=== PATIENT | male | born 1940 | race Caucasian/White ===

== ENCOUNTER 2021-02-01 06:49 | Emergency (ER) | payer MEDICARE ==
[~2021-02-01] VITALS: Ht 175.3 cm; Wt 101.3 kg
--- NOTE | 2021-02-01 07:16 | ED.ADGEN ---
General Adult EDM: Chief Complaint: ALTERED MENTAL STATUS HPI: HPI: Patient is a 80 year old male presenting via EMS for altered mental status. Per the report his said that he woke up 4 hours prior to arrival and was speaking nonsensically. Last known normal about 8 hours prior to arrival. Patient requested to go to [facility] via EMS brought him to this facility due to concerns for irregular heart rate. They stated that his heart rate will fluctuate between 70 to his lowest 26 bpm. Patient has a history of a pacemaker as well as an ablation 1 to 2 months ago. Per the report said that he has a history of UTIs and is recently been being treated for a dental infection. Stroke scale negative on their assessment and he is afebrile. History limited to EMS report due to patient's mental status. Patient is normally GCS 15 alert oriented x4, lives at home with . Review of Systems: Review of Systems: All other systems within normal limits except for as noted in the HPI Current Medications: Current Medications Medications (Trade) Dose Ordered Sig/Amado Start Time Stop Time Status Last Admin Dose Admin Sodium Chloride 500 ml @ 500 mls/hr 1X ONCE 02/01/21 10:00 02/01/21 10:59 DC 02/01/21 10:15 500 MLS/HR Allergies: Allergies: Allergies Coded Allergies Type Severity Reaction Last Updated Verified Unable to Assess 02/01/21 No Physical Exam: PE: Constitutional: Well developed, well nourished, no acute distress, non-toxic appearance. [] HENT: Normocephalic, atraumatic, bilateral external ears normal, nose normal. [] Eyes: PERRLA, conjunctiva normal, no discharge. [] Neck: No rigidity, supple, no stridor. [] Cardiovascular: Regular rate and rhythm, brisk cap refill [] Lungs & Thorax: Non labored symmetric respirations, no tachypnea or respiratory distress [] Abdomen: Soft, nondistended, no guarding palpation Skin: Warm, dry, no erythema, no rash. [] Back: Unremarkable Extremities: No deformities, range of motion grossly intact, no lower extremity edema [] Neurologic: Alert but disoriented, no focal deficits noted, moving all extremities, symmetric facial expressions Psychologic: Affect normal, judgement normal, mood normal. [] Current Patient Data: Labs: Laboratory Tests Test 02/01/21 07:05 02/01/21 07:18 02/01/21 07:38 White Blood Count 4.6 x10^3/uL (4.0-11.0) Red Blood Count 3.67 x10^6/uL (4.30-5.70) L Hemoglobin 11.3 g/dL (13.0-17.5) L Hematocrit 33.5 % (39.0-53.0) L Mean Corpuscular Volume 91 fL (79-100) Mean Corpuscular Hemoglobin 31 pg (25-35) Mean Corpuscular Hemoglobin Concent 34 g/dL (31-37) Red Cell Distribution Width 13.5 % (11.5-14.5) Platelet Count 193 x10^3/uL (140-400) Neutrophils (%) (Auto) 62 % (31-73) Lymphocytes (%) (Auto) 19 % (24-48) L Monocytes (%) (Auto) 10 % (0-9) H Eosinophils (%) (Auto) 8 % (0-3) H Basophils (%) (Auto) 1 % (0-3) Neutrophils # (Auto) 2.9 x10^3/uL (1.8-7.7) Lymphocytes # (Auto) 0.9 x10^3/uL (1.0-4.8) L Monocytes # (Auto) 0.5 x10^3/uL (0.0-1.1) Eosinophils # (Auto) 0.4 x10^3/uL (0.0-0.7) Basophils # (Auto) 0.1 x10^3/uL (0.0-0.2) Sodium Level 142 mmol/L (136-145) Potassium Level 4.5 mmol/L (3.5-5.1) Chloride Level 107 mmol/L (98-107) Carbon Dioxide Level 30 mmol/L (21-32) Anion Gap 5 (6-14) L Blood Urea Nitrogen 17 mg/dL (8-26) Creatinine 1.5 mg/dL (0.7-1.3) H Estimated GFR (Cockcroft-Gault) 45.0 BUN/Creatinine Ratio 11 (6-20) Glucose Level 181 mg/dL (70-99) H Lactic Acid Level 1.8 mmol/L (0.4-2.0) Calcium Level 8.4 mg/dL (8.5-10.1) L Phosphorus Level 2.5 mg/dL (2.6-4.7) L Magnesium Level 1.7 mg/dL (1.8-2.4) L Total Bilirubin 0.2 mg/dL (0.2-1.0) Aspartate Amino Transferase (AST) 19 U/L (15-37) Alanine Aminotransferase (ALT) 24 U/L (16-63) Alkaline Phosphatase 83 U/L (46-116) Ammonia 24 mcmol/L (11-34) Troponin I Quantitative < 0.017 ng/mL (0.000-0.055) PD-Hmf-B-Type Natriuretic Peptide 247 pg/mL (0-449) Total Protein 5.9 g/dL (6.4-8.2) L Albumin 3.3 g/dL (3.4-5.0) L Albumin/Globulin Ratio 1.3 (1.0-1.7) Thyroid Stimulating Hormone (TSH) 3.772 uIU/mL (0.358-3.74) H Ethyl Alcohol Level < 10 mg/dL (0-10) Urine Collection Type Unknown Urine Color Yellow Urine Clarity Clear Urine pH 6.0 (<5.0-8.0) Urine Specific Caro 1.015 (1.000-1.030) Urine Protein Negative mg/dL (NEG-TRACE) Urine Glucose (UA) 500 mg/dL (NEG) Urine Ketones (Stick) Negative mg/dL (NEG) Urine Blood Negative (NEG) Urine Nitrite Negative (NEG) Urine Bilirubin Negative (NEG) Urine Urobilinogen Dipstick 0.2 mg/dL (0.2 mg/dL) Urine Leukocyte Esterase Negative (NEG) Urine RBC Occ /HPF (0-2) Urine WBC Occ /HPF (0-4) Urine Bacteria 0 /HPF (0-FEW) Urine Hyaline Casts Occasional /HPF Urine Mucus Slight /LPF Urine Opiates Screen Pos (NEG) Urine Methadone Screen Neg (NEG) Urine Barbiturates Neg (NEG) Urine Phencyclidine Screen Neg (NEG) Urine Amphetamine/Methamphetamine Neg (NEG) Urine Benzodiazepines Screen Neg (NEG) Urine Cocaine Screen Neg (NEG) Urine Cannabinoids Screen Neg (NEG) Urine Ethyl Alcohol Neg (NEG) Glucose (Fingerstick) 174 mg/dL (70-99) H Laboratory Tests 02/01/21 07:05 Laboratory Tests 02/01/21 07:05 Vital Signs: Vital Signs Date Time Temp Pulse Resp B/P (MAP) Pulse Ox O2 Delivery O2 Flow Rate FiO2 02/01/21 10:00 63 16 113/69 (84) 96 Room Air 02/01/21 07:00 98.2 98.2 EKG: EKG: [] Heart Score: C/O Chest Pain: No HEART Score for Chest Pain: HEART Score for Chest Pain Response (Comments) Value History Slighlty/Non-Suspicious 0 ECG Nonspecific Repolarizatio 1 Age > 65 2 Risk Factors >3 Risk Factors or Hx CAD 2 Troponin < Normal Limit 0 Total 5 Risk Factors: Risk Factors: DM, Current or recent (<one month) smoker, HTN, HLP, family history of CAD, obesity. Risk Scores: Score 0 - 3: 2.5% MACE over next 6 weeks - Discharge Home Score 4 - 6: 20.3% MACE over next 6 weeks - Admit for Clinical Observation Score 7 - 10: 72.7% MACE over next 6 weeks - Early Invasive Strategies Radiology/Procedures: Radiology/Procedures: [facility] [address] [place] [address] IMAGING REPORT Signed PATIENT: DIANNE VENCES ACCOUNT: [id number] : 1940 LOCATION: ER AGE: 80 SEX: M EXAM STATUS: REG ER ORD. PHYSICIAN: MARY JAMES MD REASON: AMS PROCEDURE: CT HEAD WO CONTRAST INDICATION: Reason: AMS / Spl. Instructions: / History: COMPARISON: None. TECHNIQUE: Axial CT images obtained through the head without intravenous contrast. One or more of the following individualized dose reduction techniques were utilized for this examination: 1. Automated exposure control; 2. Adjustment of the mA and/or kV according to patient size; 3. Use of iterative reconstruction technique. FINDINGS: No intracranial hemorrhage. No significant midline shift. Ventricles and sulci are globally prominent. Scattered foci of low attenuation within the white matter. Calcific atherosclerosis. Degenerative changes of left temporomandibular joint. IMPRESSION: * No acute intracranial hemorrhage. * Scattered regions of low attenuation within the white matter. Non-specific in nature but a common finding and frequently secondary to small vessel ischemic disease. If there is high concern for acute causes clinically MRI better assess acuity. Electronically signed by: Luzmaria Melton MD (02/01/2021 9:23 AM) [id number] DICTATED and SIGNED BY: LUZMARIA MELTON MD DATE: 02/01/21 [id number] [][facility] [address] [place] [address] IMAGING REPORT Signed PATIENT: DIANNE VENCES ACCOUNT: [id number] : 1940 LOCATION: ER AGE: 80 SEX: M EXAM STATUS: PRE ER ORD. PHYSICIAN: MARY JAMES MD REASON: bradycardia, PROCEDURE: CHEST AP ONLY Exam performed: One view chest. Indication: Reason: bradycardia, / Spl. Instructions: / History: Date of Service: 02/01/2021 7:53 AM Comparison: None available. Single AP upright portable view chest findings: Cardiomediastinal silhouette is mildly enlarged. There is a bipolar pacemaker in place. Previous median sternotomy.. No acute infiltrates, effusion or pneumothorax is detected. The bony structures are normal. Impression: Mild cardiomegaly. No acute pulmonary findings seen. Electronically signed by: Blanka Montes MD (02/01/2021 8:05 AM) [facility] DICTATED and SIGNED BY: BLANKA MONTES MD DATE: 02/01/21 [id number] 0 Course & Med Decision Making: Course & Med Decision Making Pertinent Labs and Imaging studies reviewed. (See chart for details) Patient initially wanted to go to [facility] by EMS directed him here due to his bradycardic episode but he has not had any in this facility. Patient has not returned to baseline and discussed admission for possible MRI with patient and . They request to be transferred to . Discussed with transfer line and spoke with neurologist Dr. Campos, but has not felt the same acute stroke 945. Will still transfer to [facility], internal medicine Dr. Alas accepting Patient states that he has his granddaughter's wedding tomorrow and does not want stay in the hospital. During the time waiting for transfer patient is becoming more awake and alert and is answering questions appropriately. Is alert and oriented x4.. Patient states that he thinks he had taken an extra dose of his pain medication last night. Patient ambulated in hallway with good strength. Patient ordered some assistance to use the walker but is able to walk some distance on his own. Patient's pupils have increased in size since being here. Discussed that we will allow him to discharge with strict return precautions and to make sure he would be monitored frequently. [] Dragon Disclaimer: Dragon Disclaimer: This electronic medical record was generated, in whole or in part, using a voice recognition dictation system. Departure Departure Impression: Primary Impression: AMS (altered mental status) Disposition: 01 HOME / SELF CARE / HOMELESS Condition: STABLE Referrals: BENSON FRITZ (PCP) Patient Instructions: Altered Mental Status MARY JAMES MD Feb 01, 2021 07:16
[2021-02-01 07:31] LABS: BASO # 0.1 x10^3/uL (0.0-0.2); BASO % 1 % (0-3); EOS # 0.4 x10^3/uL (0.0-0.7); EOS % 8 % (0-3); HEMATOCRIT 33.5 % (39.0-53.0); HEMOGLOBIN 11.3 g/dL (13.0-17.5); LYMPH # 0.9 x10^3/uL (1.0-4.8); LYMPH % 19 % (24-48); MEAN CORPUSCULAR HEMOGLOBIN 31 pg (25-35); MEAN CORPUSCULAR HGB CONC 34 g/dL (31-37); MEAN CORPUSCULAR VOLUME 91 fL (79-100); MONO # 0.5 x10^3/uL (0.0-1.1); MONO % 10 % (0-9); NEUT # 2.9 x10^3/uL (1.8-7.7); NEUT % 62 % (31-73); PLATELET COUNT 193 x10^3/uL (140-400); RED BLOOD COUNT 3.67 x10^6/uL (4.30-5.70); RED CELL DISTRIBUTION WIDTH 13.5 % (11.5-14.5); WHITE BLOOD COUNT 4.6 x10^3/uL (4.0-11.0)
[2021-02-01 07:31] LABS: BILIRUBIN,URINE NEGATIVE (NEG); CLARITY,URINE CLEAR; COLOR,URINE YELLOW; NITRITE,URINE NEGATIVE (NEG); PROTEIN,URINE NEGATIVE (NEG-TRACE); UROBILINOGEN,URINE 0.2 mg/dL (0.2 mg/dL)
[2021-02-01 07:43] LABS: BACTERIA,URINE 0 /HPF (0-FEW); RBC,URINE OCC /HPF (0-2); WBC,URINE OCC /HPF (0-4)
[2021-02-01 07:44] LABS: HYALINE CASTS, URINE OCCASIONAL /HPF
[2021-02-01 07:46] LABS: CALCIUM 8.4 mg/dL (8.5-10.1); CREATININE 1.5 mg/dL (0.7-1.3); POTASSIUM 4.5 mmol/L (3.5-5.1)
[2021-02-01 07:51] LABS: BARBITURATES NEG (NEG); BENZODIAZEPINES NEG (NEG); CANNABINOIDS NEG (NEG); COCAINE NEG (NEG); METHADONE NEG (NEG); OPIATES POS (NEG); PHENCYCLIDINE NEG (NEG)
[2021-02-01 07:51] LABS: ALBUMIN 3.3 g/dL (3.4-5.0); ALBUMIN/GLOBULIN RATIO 1.3 (1.0-1.7); MAGNESIUM 1.7 mg/dL (1.8-2.4); PHOSPHORUS 2.5 mg/dL (2.6-4.7); TOTAL BILIRUBIN 0.2 mg/dL (0.2-1.0); TOTAL PROTEIN 5.9 g/dL (6.4-8.2)
[2021-02-01 07:55] LABS: AMPHETAMINE/METHAMPHETAMINE NEG (NEG)
--- NOTE | 2021-02-01 08:08 | RAD ---
Exam performed: One view chest. Indication: Reason: bradycardia, / Spl. Instructions: / History: Date of Service: 02/01/2021 7:53 AM Comparison: None available. Single AP upright portable view chest findings: Cardiomediastinal silhouette is mildly enlarged. There is a bipolar pacemaker in place. Previous medi an sternotomy.. No acute infiltrates, effusion or pneumothorax is detected. The bony structures are normal. Impression: Mild cardiomegaly. No acute pulmonary findings seen. Electronically signed by: Blanka Montes MD (02/01/2021 8:05 AM) [facility]
--- NOTE | 2021-02-01 09:26 | RAD ---
INDICATION: Reason: AMS / Spl. Instructions: / History: COMPARISON: None. TECHNIQUE: Axial CT images obtained through the head without intravenous contrast. One or more of the following individualized dose reduction techniques were utilized for this examinat ion: 1. Automated exposure control; 2. Adjustment of the mA and/or kV according to patient size; 3 . Use of iterative reconstruction technique. FINDINGS: No intracranial hemorrhage. No significant midline shift. Ventricles and sulci are globally prominent. Scattered foci of low attenuation within the white matter. Calcific atherosclerosis. Degenerative changes of left temporomandibular joint. IMPRESSION: * No acute intracranial hemorrhage. * Scattered regions of low attenuation within the white matter. Non-specific in nature but a common finding and frequently secondary to small vessel ischemic disease. If there is high concern for acut e causes clinically MRI better assess acuity. Electronically signed by: Joseph Paul MD (02/01/2021 9:23 AM) [id number]
[2021-02-01] MEDS ORDERED: IV NORMAL SALINE 500ML BAG 500 ML IV ONE (10:00)
--- NOTE | 2021-02-01 11:36 | EKG ---
[facility] [address] [place] [address] Test Date: 2021-02-01 Test Time: 06:56:35 Pat Name: DIANNE VENCES Department: Room: Gender: M Motor Vehicle Salesperson: : 1940 Requested By: MARY JAMES Order Number: [id number] Reading MD: Yehuda Gill Measurements Intervals [place] Rate: 71 P: 0 DE: 138 QRS: -43 QRSD: 158 T: 160 QT: 448 QTc: 487 Interpretive Statements VENTRICULAR PACED RHTHM Electronically Signed On 02-07-2021 13:08:58 CDT by Yehuda Gill
[2021-02-01 11:43] VITALS: BP 146/79
== END 2021-02-01 12:12 | disposition home or self-care (01) ==
LOC: ER 06:49
DX: R41.82 Altered mental status, unspecified (principal); Z95.0 Presence of cardiac pacemaker; Z87.440 Personal history of urinary (tract) infections
CPT/HCPCS: 36415; 70450; 71045; 80053; 80307; 81001; 82140; 82962; 83605; 83735; 83880; 84100; 84443; 84484; 85025; 87040; 93005; 99284; G0480; J7040